=== PATIENT | female | born 1950 | race Caucasian/White ===

== ENCOUNTER 2017-06-18 10:57 | Outpatient (CLI) | payer BC ==
[~2017-06-18 10:57] MED LIST: BUSPIRONE HCL15 MG; CLONAZEPAM0.5 MG; LEXAPRO20 MG; WELLBUTRIN SR150 MG; WELLBUTRIN XL300 MG
== END 2017-06-18 11:08 | disposition home or self-care (01) ==
LOC: NUCLEAR 10:57
DX: D35.1 Benign neoplasm of parathyroid gland (principal)
CPT/HCPCS: 78072; A9500

== ENCOUNTER 2018-05-26 14:26 | Outpatient (CLI) | payer BC | END 2018-05-26 14:31 | disposition home or self-care (01) | LOC: LAB 14:26 | DX: E56.1 Deficiency of vitamin K (principal) ==

== ENCOUNTER → 2018-07-26 | Outpatient (CLI) | payer BC | END | disposition home or self-care (01) | LOC: NUCLEAR 09:00 | DX: E21.3 Hyperparathyroidism, unspecified (principal); M81.0 Age-related osteoporosis without current pathological fracture | CPT/HCPCS: 78072; A9500 ==

== ENCOUNTER 2019-01-10 14:59 | Outpatient (CLI) | payer BC | END 2019-01-10 15:10 | disposition home or self-care (01) | LOC: LAB 14:59 | DX: E88.89 Other specified metabolic disorders (principal); E21.3 Hyperparathyroidism, unspecified; M81.8 Other osteoporosis without current pathological fracture; E56.1 Deficiency of vitamin K ==

== ENCOUNTER → 2019-01-13 | Outpatient (CLI) | payer BC | END | disposition home or self-care (01) | LOC: NUCLEAR 11:00 | DX: M81.0 Age-related osteoporosis without current pathological fracture (principal) ==

== ENCOUNTER → 2020-05-12 10:29 | Outpatient (CLI) | payer BC | END | disposition home or self-care (01) | LOC: LAB 10:29 | DX: R05 Cough (principal); R50.9 Fever, unspecified ==

== ENCOUNTER 2020-11-22 12:11 | Outpatient (CLI) | payer BC | END 2020-11-22 12:21 | disposition home or self-care (01) | LOC: MAMO-SONO 12:11 | DX: N64.59 Other signs and symptoms in breast (principal); Z12.31 Encounter for screening mammogram for malignant neoplasm of breast; Z87.898 Personal history of other specified conditions; N64.4 Mastodynia ==

== ENCOUNTER 2020-12-16 23:08 | Emergency (ER) | payer BC ==
[~2020-12-16] VITALS: Ht 167.6 cm; Wt 70.3 kg
[2020-12-17] MEDS ORDERED: CEPHALEXIN500 M1 PO (03:51)
== END 2020-12-17 03:57 | disposition home or self-care (01) ==
LOC: ER 23:08
DX: S61.422A Laceration with foreign body of left hand, initial encounter (principal); W25.XXXA Contact with sharp glass, initial encounter; Y93.G1 Activity, food preparation and clean up; Y92.010 Kitchen of single-family (private) house as the place of occurrence of the external cause; Y99.8 Other external cause status

== ENCOUNTER 2020-12-24 11:22 | Emergency (ER) | payer BC ==
[~2020-12-24] VITALS: Ht 167.6 cm; Wt 70.3 kg
[~2020-12-24 11:22] MED LIST changes: +CEPHALEXIN500 M1 PO
== END 2020-12-24 12:29 | disposition home or self-care (01) ==
LOC: ER 11:22
DX: Z48.02 Encounter for removal of sutures (principal); S60.922D Unspecified superficial injury of left hand, subsequent encounter

== ENCOUNTER 2023-02-04 13:42 | Outpatient (CLI) | payer BC | END 2023-02-04 13:49 | disposition home or self-care (01) | LOC: MAMO-SONO 13:42 | PROVIDERS: ATTEND General Practice | DX: Z12.31 Encounter for screening mammogram for malignant neoplasm of breast (principal) ==

== ENCOUNTER 2023-02-17 13:25 | Outpatient (CLI) | payer BC | END 2023-02-17 13:28 | disposition home or self-care (01) | LOC: NUCLEAR 13:25 | DX: M81.0 Age-related osteoporosis without current pathological fracture (principal) ==

== ENCOUNTER 2023-11-28 12:35 | Emergency (ER) | payer BC ==
[~2023-11-28] VITALS: Ht 157.5 cm; Wt 71.2 kg
[2023-11-28] MEDS ORDERED: SEROQUEL25 MG PO (13:17)
[2023-11-28] MEDS ORDERED: KETOROLAC TROMETHAMINE 30 MG VIAL IM ONE (14:15)
== END 2023-11-28 16:56 ==
LOC: ER 12:36
DX: M77.9 Enthesopathy, unspecified (principal); M79.621 Pain in right upper arm; I10 Essential (primary) hypertension

== ENCOUNTER 2024-08-09 13:17 | Outpatient (CLI) | payer BC ==
[~2024-08-09 13:17] MED LIST changes: +SEROQUEL25 MG PO
== END 2024-08-09 13:27 | disposition home or self-care (01) ==
LOC: MAMO-SONO 13:17
PROVIDERS: ATTEND Family Medicine
DX: R05.9 Cough, unspecified (principal); R05.2 Subacute cough; Z12.31 Encounter for screening mammogram for malignant neoplasm of breast; N60.11 Diffuse cystic mastopathy of right breast; N60.12 Diffuse cystic mastopathy of left breast